=== PATIENT | female | born 1965 | race Two or more races ===

== ENCOUNTER 2022-07-08 14:48 | Emergency (ER) | payer OTHER | END 2022-07-08 20:04 | disposition home or self-care (01) | LOC: ER 14:48 | DX: I10 Essential (primary) hypertension (principal); Z91.018 Allergy to other foods ==

== ENCOUNTER 2023-02-25 09:50 | Emergency (ER) | payer OTHER ==
[~2023-02-25] VITALS: Ht 162.6 cm; Wt 79.8 kg
[~2023-02-25 09:50] MED LIST: CHILDREN'S ASPI81 MG PO; LEVAQUIN750 MG PO; PRAVASTATIN SOD10 MG; PROPANOLOL PO; SINGULAIR4 MG; TUSSI-PRES LIQ118 ML PO; ZYRTEC10 MG PO
[2023-02-25] MEDS ORDERED: ADULT LOW DOSE81 M1 PO (10:10)
[2023-02-25] MEDS ORDERED: HYDRODIURIL12.5 MG PO (10:11)
[2023-02-25] MEDS ORDERED: ZANAFLEX2 M1 (10:11)
[2023-02-25] MEDS ORDERED: AMLODIPINE-OLM1 EAC2 (10:12)
== END 2023-02-25 13:50 | disposition home or self-care (01) ==
LOC: ER 09:50
DX: M79.605 Pain in left leg (principal); Z91.018 Allergy to other foods